=== PATIENT | male | born 1980 | race Caucasian/White ===

== ENCOUNTER 2018-04-14 17:57 | Emergency (ER) | payer OTHER ==
[2018-04-14] MEDS ORDERED: Bacitracin Oint 1 GM U/D Packet TOP ONE (18:18)
[2018-04-14] MEDS ORDERED: Diphtheria,Pertussis(Acell),Tetanus Vaccine 0.5 ML SDV IM ONE (18:30)
--- NOTE | 2018-04-14 18:33 | EDM.PDOC ---
ED HPI GENERAL MEDICAL PROBLEM - General Chief Complaint: Laceration Stated Complaint: FISH HOOK Time Seen by Provider: 04/14/18 18:17 Source of Information: Reports: Patient, RN Notes Reviewed History Limitations: Reports: No Limitations - History of Present Illness INITIAL COMMENTS - FREE TEXT/NARRATIVE: 37 year old gentleman presents to the emergency department with complaint of fishhook to his right forearm he accidentally punctured himself with a fishhook while cleaning his garage no functional complaints - Related Data Allergies Allergy/AdvReac Type Severity Reaction Status Date / Time No Known Allergies Allergy Verified 04/14/18 18:17 Home Meds: Home Meds NK [No Known Home Meds] 04/14/18 [History] Past Medical History - Past Surgical History HEENT Surgical History: Reports: Oral Surgery, Tonsillectomy Musculoskeletal Surgical History: Reports: Other (See Below) Other Musculoskeletal Surgeries/Procedures:: tendon repair onhand Social & Family History - Tobacco Use Smoking Status *Q: Current Every Day Smoker Years of Tobacco use: 13 Packs/Tins Daily: 0.5 - Caffeine Use Caffeine Use: Reports: Coffee, Soda ED ROS GENERAL - Review of Systems Review Of Systems: See Below Constitutional: Reports: No Symptoms Skin: Reports: Wound ED EXAM, SKIN/RASH Exam: See Below Text/Narrative:: Large treble hook located in the anterior aspect of the right forearm, this was removed with using lidocaine with epinephrine to anesthetize area followed by an 18-gauge needle cover the kapil and withdrawing the hook Exam Limited By: No Limitations General Appearance: Alert, WD/WN, No Apparent Distress Course - Vital Signs Last Recorded V/S: Last Vital Signs Temp 97.9 F 04/14/18 18:20 Pulse 71 04/14/18 18:20 Resp 14 04/14/18 18:20 BP 135/84 04/14/18 18:20 Pulse Ox 100 04/14/18 18:20 - Orders/Labs/Meds Meds: Medications Discontinued Medications Generic Name Dose Route Start Last Admin Trade Name Freq PRN Reason Stop Dose Admin Bacitracin 1 dose 04/14/18 18:18 Bacitracin Oint 1 Gm TOP 04/14/18 18:19 ONETIME ONE Departure - Departure Time of Disposition: 18:32 Disposition: Home, Self-Care 01 Condition: Good Clinical Impression: Fish hook injury of right forearm Qualifiers: Encounter type: initial encounter Qualified Code(s): S59.911A - Unspecified injury of right forearm, initial encounter - Discharge Information Referrals: PCP,None [Primary Care Provider] - Additional Instructions: Follow-up with primary care as needed - Assessment/Plan Plan: Assessment Acuity = acute Site and laterality = fishhook right arm injury Etiology = accidental puncture Manifestations = none Location of injury = Home Lab values = none Plan Tetanus was updated today wound is covered in bacitracin by nursing staff help with primary care as needed This note was dictated using [employer] voice recognition software please call with any questions on syntax or grammar.
== END 2018-04-14 18:42 | disposition home or self-care (01) ==
LOC: JP.ED 17:57
DX: S50.851A Superficial foreign body of right forearm, initial encounter (principal); F17.210 Nicotine dependence, cigarettes, uncomplicated; Z23 Encounter for immunization; W45.8XXA Other foreign body or object entering through skin, initial encounter
CPT/HCPCS: 90471; 90715; 99283-25

== ENCOUNTER 2021-04-10 10:06 | Emergency (ER) | payer OTHER ==
[2021-04-10] MEDS ORDERED: Acetaminophen/oxyCODONE 325-5 MG Tab PO ONE (11:02)
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
--- NOTE | 2021-04-10 12:52 | CRLCR ---
For Patients: As a result of the Century Cures Act, medical imaging exams and procedure reports are released immediately into your electronic medical record. You may view this report before your referring provider. If you have questions, please contact your health care provider. Indication: Evaluate for separation Technique: Bilateral AC joints with weights. Comparison: X-rays 04/10/2021 Findings: Slight offset with mild elevation of the right clavicle in relationship to the acromion. Mild widening of the AC joint. Normal left AC joint. Impression: 1. AC II separation on the right. Dictated by Briseida Montoya MD @ 04/10/2021 12:51:[address] Briseida Montoya @ Apr 10 2021 12:51PM
== END 2021-04-10 13:10 | disposition home or self-care (01) ==
LOC: JP.ED 10:06
DX: S43.101A Unspecified dislocation of right acromioclavicular joint, initial encounter (principal); S40.011A Contusion of right shoulder, initial encounter; V86.56XA Driver of dirt bike or motor/cross bike injured in nontraffic accident, initial encounter; Y93.55 Activity, bike riding
CPT/HCPCS: 73030; 73050; 99283; A9270